=== PATIENT | male | born 1955 | race Caucasian/White ===

== ENCOUNTER 2016-10-30 06:13 | Day surgery (SDC) | payer BC ==
--- NOTE | ~2016-10-30 | EGD ---
EGD REPORT [facility] [address] [id number] NAME: ROXI ALVAREZ : [birth year] STATUS : REG [facility]#: [id number] AGE: 61 ADM/REG DATE : 10/30/16 MR#: [id number] REPORT SERV DATE: 10/30/16 DICTATED BY: ULISSES GLOVER DATE: 10/30/16 REPORT STATUS : Draft TRANS[facility]IBED BY: [facility] DATE: 10/30/16 [facility] Center Patient Name: Roxi Alvarez Date of : 1955 Attending MD: ULISSES GLOVER, Procedure Date No Time: 10/30/2016 Procedure: Colonoscopy Indications: High risk colon cancer surveillance: Personal history of colon cancer Referring MD: KLEBER CHAKRABORTY, YARELIS MASTERS MD, MARIAELENA MACKENZIE Medicines: Monitored Anesthesia Care Complications: No immediate complications. Estimated blood loss: None. Procedure: Pre-Anesthesia Assessment: - ASA Grade Assessment: II - A patient with mild systemic disease. After I obtained informed consent, the scope was passed under direct vision. Throughout the procedure, the patient's blood pressure, pulse, and oxygen saturations were monitored continuously. The GIF [id number] was introduced through the anus and advanced to the cecum, identified by appendiceal orifice and ileocecal valve. Findings: The digital rectal exam was abnormal. Findings include rectal stricture. Could not pass finger. Because of this I used a standard upper endoscope for the exam. There was evidence of a prior end-to-side colo-anal anastomosis at the anus. This was traversed. A sessile polyp was found in the ascending colon. The polyp was 6 mm in size. The polyp was removed with a hot snare. Resection and retrieval were complete. Verification of patient identification for the specimen was done. Estimated blood loss was minimal. The exam was otherwise without abnormality. Impression: - Rectal stricture found on digital rectal exam. - End-to-side colo-anal anastomosis. - One 6 mm polyp in the ascending colon. Resected and retrieved. - The examination was otherwise normal. Recommendation: - Patient has a contact number available for emergencies. The signs and symptoms of potential delayed complications were discussed with the patient. Return to normal activities tomorrow. Written discharge instructions were provided to the patient. EGD REPORT [address] [place]. [address] NAME: ROXI ALVAREZ LEON : [birth year] STATUS : REG [facility]#: [id number] AGE: 61 ADM/REG DATE : 10/30/16 MR#: [id number] REPORT SERV DATE: 10/30/16 DICTATED BY: ULISSES GLOVER DATE: 10/30/16 REPORT STATUS : Draft TRANSCRIBED BY: [employer] DATE: 10/30/16 - Return to previous diet. - Continue present medications. - Await pathology results. - Repeat colonoscopy in 2 years for surveillance. Procedure Code(s): --- Professional --- 73606, Colonoscopy, flexible, proximal to splenic flexure; with removal of tumor(s), polyp(s), or other lesion(s) by snare technique Diagnosis Code(s): --- Professional --- K62.4, Stenosis of anus and rectum Z98.0, Intestinal bypass and anastomosis status D12.2, Benign neoplasm of ascending colon Z85.038, Personal history of other malignant neoplasm of large intestine CPT copyright 2013 [employer]. All rights reserved. The codes documented in this report are preliminary and upon patent clerk review may be revised to meet current compliance requirements. ULISSES GLOVER, 10/30/2016 8:04 AM Number of Addenda: 0 Note Initiated On: 10/30/2016 7:35 AM Scope Withdrawal Time 0 hours 11 minutes 32 seconds [address] [place] [address]
[~2016-10-30 06:13] MED LIST: IMOD PO; MIRALAX POWDER1 PKT PO; MULTI-VIT HP PO; MULTIPLE VIT PO; PCET PO
== END 2016-10-30 23:59 | disposition home or self-care (01) ==
LOC: DMU 06:13
PROVIDERS: Internal Medicine Gastroenterology
PROC: 0DBK8ZZ Excision of Ascending Colon, Via Natural or Artificial Opening Endoscopic (ICD-10-PCS; principal; 2016-10-30 08:00)
DX: Z12.11 Encounter for screening for malignant neoplasm of colon (principal); D12.2 Benign neoplasm of ascending colon; K62.4 Stenosis of anus and rectum; Z98.0 Intestinal bypass and anastomosis status; Z85.038 Personal history of other malignant neoplasm of large intestine; K58.9 Irritable bowel syndrome, unspecified; Z79.899 Other long term (current) drug therapy; Z88.0 Allergy status to penicillin
CPT/HCPCS: 88305